=== PATIENT | female | born 1940 | race Caucasian/White ===

== ENCOUNTER 2016-07-20 14:46 | Inpatient (IN) | payer BC, MEDICARE ==
[~2016-07-20] VITALS: Ht 162.6 cm; Wt 81.2 kg
--- NOTE | 2016-07-20 15:14 | NUR ---
AT BEDSIDE PERFORMING MSE
--- NOTE | 2016-07-20 15:16 | NUR ---
PT ARRIV[facility] FROM [facility]. ACCOMPANIED BY EVALUATOR TRANSFER STUDENTS AT BEDSIDE. PT ARRIVED VIA WHEELCHAIR, ABLE TO TRANSFER FROM BED TO CHAIR.
[2016-07-20 15:49] LABS: BASOPHILS # (AUTO) 0.1 K/uL (0.0-8.0); BASOPHILS % (AUTO) 0.6 % (0.0-2.0); EOSINOPHILS # (AUTO) 0.1 K/uL (0.0-0.7); EOSINOPHILS % (AUTO) 0.7 % (0.0-7.0); HEMATOCRIT 42.7 % (37-47); HEMOGLOBIN 14.4 G/DL (12.0-16.0); LYMPHOCYTES # (AUTO) 2.5 K/UL (0.8-4.8); LYMPHOCYTES % (AUTO) 28.6 % (20.5-51.5); MEAN CORPUSCULAR HEMOGLOBIN 30.4 UUG (27.0-31.0); MEAN CORPUSCULAR HGB CONC 34 g/dL (32.0-37.0); MEAN CORPUSCULAR VOLUME 89.7 FL (81.0-99.0); MONOCYTES # (AUTO) 0.6 K/UL (0.1-1.30); MONOCYTES % (AUTO) 7.2 % (0.0-11.0); NEUTROPHILS # (AUTO) 5.3 K/UL (1.8-8.9); NEUTROPHILS % (AUTO) 62.9 % (38.5-71.5); PLATELET COUNT (AUTO) 209 K/UL (150-450); RED BLOOD CELL COUNT(AUTO) 4.76 MIL/UL (4.2-5.4); WHITE BLOOD COUNT (AUTO) 8.6 K/UL (4.0-11.2)
[2016-07-20 15:56] LABS: CARBON DIOXIDE 27 mmol/L (21-32); CHLORIDE 104 mmol/L (98-107); CREATININE 1.4 mg/dL (0.6-1.3); GLUCOSE 98 mg/dL (74-106); POTASSIUM 4.5 mmol/L (3.5-5.1); UREA NITROGEN, BLOOD 20 mg/dL (7-18)
[2016-07-20 16:00] LABS: ALANINE AMINOTRANSFERASE 23 U/L (14-59); ALKALINE PHOSPHATASE 83 U/L (50-136); ASPARTATE AMINOTRANSFERASE 19 U/L (15-37); BILIRUBIN,DIRECT 0.1 mg/dL (0.0-0.2); BILIRUBIN,TOTAL 0.4 mg/dL (0.2-1.0); LIPASE 140 U/L (73-393); TOTAL PROTEIN, SERUM 7.2 g/dL (6.4-8.2)
[2016-07-20] MEDS ORDERED: NITR0.4T SL (16:16)
[2016-07-20] MEDS ORDERED: SPIR25TA4 PO (16:16)
[2016-07-20] MEDS ORDERED: LOPE2CAP40 PO (16:16)
[2016-07-20] MEDS ORDERED: CYCL5TAB PO (16:16)
[2016-07-20] MEDS ORDERED: LEVO75TA7 PO (16:16)
[2016-07-20] MEDS ORDERED: ACET-2605 PO (16:16)
[2016-07-20] MEDS ORDERED: HYDR-3026 PO (16:16)
[2016-07-20] MEDS ORDERED: QUET25TA PO (16:16)
[2016-07-20] MEDS ORDERED: VENL75CA62 PO (16:16)
[2016-07-20] MEDS ORDERED: GLIP5TAB13 PO (16:16)
[2016-07-20] MEDS ORDERED: DIVA500T7 PO (16:16)
[2016-07-20] MEDS ORDERED: QUET50TA PO (16:16)
[2016-07-20] MEDS ORDERED: ATOR10TA PO (16:16)
--- NOTE | 2016-07-20 17:07 | NUR ---
REPORT GIVEN TO JOSE LUIS, AWARE OF PT'S CURRENT CONDITION. WILL CONTINUE PLAN OF CARE
[2016-07-20 17:57] VITALS: BP 100/59
[2016-07-20] MEDS ORDERED: NITROGLYCERIN 0.4 MG/TAB BOTTLE SL PRN (18:30)
[2016-07-20] MEDS ORDERED: Medication Not On Formulary EA (Cyclobenzaprine Hcl 10 MG) PO PRN (18:30)
[2016-07-20] MEDS ORDERED: QUETIAPINE FUMARATE 25 MG TABLET PO PRN (18:30)
[2016-07-20] MEDS ORDERED: DIVALPROEX 500 MG TABLET.DR PO ONE (18:32)
[2016-07-20] MEDS ORDERED: CYCLOBENZAPRINE HCL 10 MG TABLET PO PRN (18:45)
[2016-07-20 19:13] LABS: *BILIRUBIN,URIN NEGATIVE (NEGATIVE); *BLOOD, URINE NEGATIVE (NEGATIVE); *CLARITY,URINE SLIGHTLY CLOUDY (CLEAR); *COLOR,URINE YELLOW (YELLOW); *KETONES,URINE TRACE (NEGATIVE); *PROTEIN,URINE 1+ (NEGATIVE); *UROBILINOGEN,URINE 0.2 E.U./dl (NORMAL); LEUKOCYTE ESTERASE ,URINE TRACE (NEGATIVE); NITRITE, URINE NEGATIVE (NEGATIVE); UGLUCOSE NEGATIVE (NEGATIVE)
[2016-07-20 19:22] LABS: RBC,URINE 0-3 /HPF (0-3)
[2016-07-20 19:23] LABS: BACTERIA,URINE MANY /HPF (NONE SEEN); SQUAMOUS EPITHELIAL CELL,UR MANY /HPF (NONE SEEN)
--- NOTE | 2016-07-20 19:29 | NUR ---
PT IS LAYING IN BED COMFORTABLY. NO PAIN NOTED. NO S/S OF RESPIRATORY DISTRESS NOTED. IV INTACT/PATENT. ALL SAFETY NEEDS ARE MET.
[2016-07-20] MEDS: ATORVASTATIN 10 MG TABLET PO SCH (20:08)
[2016-07-20 20:10] VITALS: BP 111/49
[2016-07-20] MEDS ORDERED: MORPHINE SULFATE 2 MG/1 ML DISP.SYRIN IM PRN (21:00)
[2016-07-20] MEDS: MORPHINE SULFATE 2 MG/1 ML DISP.SYRIN IV PRN (22:08)
[2016-07-20] MEDS ORDERED: MORPHINE SULFATE 2 MG/1 ML DISP.SYRIN ONE (22:12)
--- NOTE | 2016-07-21 04:57 | NUR ---
C/O LOWER BACK PAIN LAST NIGHT, WAS GIVEN MS PRESCRIBED. NO FURTHER C/O PAIN. PT NOW RESTING IN BED, WATCHING TV. TURNED AND REPOSITIONED. SAFETY MAINTAINED. CALL LIGHT WITHIN REACH.
[2016-07-21] MEDS: LEVOTHYROXINE SODIUM 75 MCG TABLET PO SCH (06:30)
[2016-07-21] MEDS: MORPHINE SULFATE 2 MG/1 ML DISP.SYRIN IV PRN ×3 (06:30→20:59)
[2016-07-21] MEDS: glipiZIDE 5 MG TABLET PO SCH (06:30)
[2016-07-21] MEDS ORDERED: MORPHINE SULFATE 2 MG/1 ML DISP.SYRIN ONE (06:40)
[2016-07-21 06:47] VITALS: BP 116/58
--- NOTE | 2016-07-21 07:30 | NUR ---
RECEIVED PATIENT IN BED AWAKE ALERT AND STATED COMFORTABLE AT THIS TIME REMAINS ON ROOM AIR WITH NO SHORTNESS OF BREATH. MADE COMFORTABLE NO DISTRESS AT THIS TIME.
--- NOTE | 2016-07-21 08:00 | NUR ---
PATIENT STATED THAT SHE WAS MISSING SOME OF HER MEDICATIONS BUT DOES NO REMEMBER THE NAMES SO SHE STATED THAT SHE WILL CALL HER FAMILY FOR THE NAMES AND WILL LET ME KNOW.DR LOMAS AWARE OF THIS CONVERSATION.
--- NOTE | 2016-07-21 08:32 | NUR ---
NOTED THAT PATIENT HAS NO DIET ORDER CALLED AND SPOKE WITH DR LOMAS WITH NEW ORDERS AND NOTED.
[2016-07-21] MEDS: QUETIAPINE FUMARATE 25 MG TABLET PO SCH ×2 (08:46→17:44)
[2016-07-21] MEDS: DIVALPROEX 500 MG TABLET.DR PO SCH ×2 (08:46→17:43)
[2016-07-21] MEDS: VENLAFAXINE XR 75 MG CAP.SR.24H PO SCH ×2 (08:46→17:43)
[2016-07-21] MEDS ORDERED: Medication Not On Formulary EA (Quetiapine Fumarate (Seroquel) 50 MG) PO SCH (09:00)
--- NOTE | 2016-07-21 09:38 | NUR ---
ORDER NOTED FROM DR LOMAS FOR ECHO AND NOTED
[2016-07-21 11:22] LABS: CARBON DIOXIDE 30 mmol/L (21-32); CHLORIDE 104 mmol/L (98-107); CREATININE 1.1 mg/dL (0.6-1.3); GLUCOSE 70 mg/dL (74-106); POTASSIUM 4.1 mmol/L (3.5-5.1); UREA NITROGEN, BLOOD 19 mg/dL (7-18)
[2016-07-21 12:04] VITALS: BP 100/50
--- NOTE | 2016-07-21 12:25 | NUR ---
TEXTED DR. ADAN FOR MRI APPROVAL.
--- NOTE | 2016-07-21 13:10 | NUR ---
CALL RECEIVED FROM ROCCO AT THE MRI STATED THAT THE MRI FOR C SPINE L SPINE AND T SPINE HAS BEEN APPROAVED AND THE APPOINTMENT IS SET FOR 0.CALLED [facility] AND SPOKE WITH TYLER WILL DRYING OVEN ATTENDANT SOON POSSIBLE.PATIENT AWARE AND FILLED OUT THE MRI QUESTIONAIRE.
--- NOTE | 2016-07-21 16:15 | NUR ---
PATIENT PICKED UP BY [facility] TO [facility] FOR MRI ORDERED IN SATISFACTORY CONDITION.PATIENT WAS MEDICATED WITH MORPHINE PER HER REQUEST PRIOR TO HIDE BUYER.
[2016-07-21 16:24] VITALS: BP 108/59
--- NOTE | 2016-07-21 17:30 | NUR ---
PATIENT RETURNED FROM [facility] AND PER THE DEANA TRUONG SHE DID NOT EVEN FINISH THE C PINE BECAUSE THE PATIENT IS NOT COOPERATING DID NOT LIKE THE CLOSED MRI STATED THAT SHE ALWAYS USED TO THE OPEN MRI.
[2016-07-21 19:00] VITALS: BP 100/64
[2016-07-21] MEDS: ATORVASTATIN 10 MG TABLET PO SCH (20:57)
[2016-07-22] MEDS: MORPHINE SULFATE 2 MG/1 ML DISP.SYRIN IV PRN ×2 (03:27→20:21)
--- NOTE | 2016-07-22 03:30 | NUR ---
NO PAIN MEDICATION WAS GIVEN FOR REASSESSMENT TIME.
[2016-07-22 05:10] VITALS: BP 124/65
[2016-07-22] MEDS: hydrOXYzine HCL 25 MG TABLET PO PRN ×2 (06:49→20:22)
[2016-07-22] MEDS: LEVOTHYROXINE SODIUM 75 MCG TABLET PO SCH (06:49)
[2016-07-22] MEDS: glipiZIDE 5 MG TABLET PO SCH (06:50)
[2016-07-22 06:59] LABS: CARBON DIOXIDE 30 mmol/L (21-32); CHLORIDE 105 mmol/L (98-107); CHOLESTEROL 232 mg/dL (<200); CREATININE 1.2 mg/dL (0.6-1.3); GLUCOSE 87 mg/dL (74-106); HDL CHOLESTEROL 56 mg/dL (40-60); MAGNESIUM 1.8 mg/dL (1.8-2.4); PHOSPHOROUS 4.1 mg/dL (2.5-4.9); POTASSIUM 4.1 mmol/L (3.5-5.1); TRIGLYCERIDES 96 MG/DL (30-150); UREA NITROGEN, BLOOD 23 mg/dL (7-18)
[2016-07-22 07:08] LABS: BASOPHILS % (AUTO) 0.5 % (0.0-2.0); EOSINOPHILS # (AUTO) 0.1 K/uL (0.0-0.7); HEMATOCRIT 38.7 % (37-47); HEMOGLOBIN 12.9 G/DL (12.0-16.0); LYMPHOCYTES # (AUTO) 2.1 K/UL (0.8-4.8); LYMPHOCYTES % (AUTO) 38.4 % (20.5-51.5); MEAN CORPUSCULAR HEMOGLOBIN 29.6 UUG (27.0-31.0); MEAN CORPUSCULAR HGB CONC 33 g/dL (32.0-37.0); MEAN CORPUSCULAR VOLUME 88.8 FL (81.0-99.0); MONOCYTES # (AUTO) 0.4 K/UL (0.1-1.30); NEUTROPHILS # (AUTO) 2.9 K/UL (1.8-8.9); NEUTROPHILS % (AUTO) 51.1 % (38.5-71.5); PLATELET COUNT (AUTO) 163 K/UL (150-450); RED BLOOD CELL COUNT(AUTO) 4.36 MIL/UL (4.2-5.4)
[2016-07-22 07:12] LABS: THYROID STIMULATING HORMONE 1.629 mIU/mL (0.358-3.740); WHITE BLOOD COUNT (AUTO) 5.5 K/UL (4.0-11.2)
--- NOTE | 2016-07-22 08:00 | NUR ---
RECEIVED PATIENT AWAKE ALERT AND ORIENTED DENIES PAIN OR DISCOMFORTS AT THIS TIME.APPETITE WAS GOOD FOR MEALS FLUIDS TOLERATED WELL MADE COMFORTABLE NOT IN DISTRESS AT THIS TIME.
[2016-07-22] MEDS: DIVALPROEX 500 MG TABLET.DR PO SCH ×2 (08:15→17:15)
[2016-07-22] MEDS: QUETIAPINE FUMARATE 25 MG TABLET PO SCH ×2 (08:15→17:15)
[2016-07-22] MEDS: VENLAFAXINE XR 75 MG CAP.SR.24H PO SCH ×2 (08:15→17:15)
[2016-07-22 11:58] VITALS: BP 107/56
--- NOTE | 2016-07-22 13:34 | NUR ---
AWAKE ALERT ANXIOUS TO SEE THE DOCTOR AND MAY BE GO HOME TODAY MESSAGE LEFT FOR DR LOMAS.
[2016-07-22 16:12] VITALS: BP 103/59
--- NOTE | 2016-07-22 18:00 | NUR ---
PATIENT SEEN BY DR LOMAS WITH DISCHARGE PLANNING TO THE SNF TOMORROW PATIENT IS AWARE.
[2016-07-22 19:00] VITALS: BP 106/52
--- NOTE | 2016-07-22 19:30 | NUR ---
RECEIVED PT IN BED, IN NO ACUTE SIGNS OF DISTRESS. DENIES PAIN AT THIS TIME. SAFETY OBSERVED. CALL LIGHT WITHIN REACH.
[2016-07-22] MEDS: ATORVASTATIN 10 MG TABLET PO SCH (20:20)
[2016-07-23] MEDS: hydrOXYzine HCL 25 MG TABLET PO PRN (01:26)
--- NOTE | 2016-07-23 01:26 | NUR ---
PT COMPLAINING OF ALLERGIC REACTION TO MORPHINE, STATING THAT SHE IS ITCHING ON THE IV SITE, WHEN SITE WAS CHECKED THERE WAS NO RASHES/ REDNESS, ALSO NO RASHES NOTED ON OTHER SITE SITE OF THE BODY. NO C/O SOB. ATARAX WAS GIVEN PER PT REQUEST AND PRESCRIBED. WILL CONTINUE TO MONITOR.
[2016-07-23 04:39] VITALS: BP 126/61
[2016-07-23] MEDS: LEVOTHYROXINE SODIUM 75 MCG TABLET PO SCH (06:05)
--- NOTE | 2016-07-23 06:31 | NUR ---
NO FURTHER C/O PAIN/ ITCHING AT THIS TIME. PAIN IN BED RESTING, SLEPT INTERMITTENTLY LAST NIGHT. IN NO ACUTE SIGNS OF DISTRESS, TURNED AND REPOSITIONED. SAFETY MAINTAINED. CALL LIGHT WITHIN REACH.
[2016-07-23] MEDS: glipiZIDE 5 MG TABLET PO SCH (06:44)
[2016-07-23] MEDS ORDERED: FLEET ENEMA 133 ML BOTTLE RC PRN (08:00)
[2016-07-23] MEDS ORDERED: MIRALAX 17 GM POWD.PACK PO PRN (08:00)
[2016-07-23] MEDS ORDERED: BISACODYL 10 MG SUPP.RECT RC ONE (08:00)
--- NOTE | 2016-07-23 08:00 | NUR ---
NEW ORDERS NOTED FROM DR LOMAS TO GIVE PATIENT A DULCOLAX SUPPOSITORY AND START HIM ON BACTRIM BUT PATIENT REFUSED THE BACTRIM STATED THAT HE ISHE IS ALLERGIC TO BACTRIM AND THAT DULCOLAX SUPPOSITORY CAUSES HER TO HAVE DIARRHEA BUT SHE ACCEPTED THE PRN MIRALAX AND DSS STOOL SOFTENER ORDERED DR LOMAS WAS NOTIFIED THAT PATIENT REFUSED THE LAXATIVE AND THE ANTIBIOTICS WITH NO NEW ORDERS AT THIS TIME.
[2016-07-23] MEDS: DIVALPROEX 500 MG TABLET.DR PO SCH ×2 (08:36→17:14)
[2016-07-23] MEDS: VENLAFAXINE XR 75 MG CAP.SR.24H PO SCH ×2 (08:37→17:13)
[2016-07-23] MEDS: DOCUSATE SODIUM 100 MG CAPSULE PO SCH ×2 (08:37→20:06)
[2016-07-23 08:38] LABS: CARBON DIOXIDE 32 mmol/L (21-32); CHLORIDE 104 mmol/L (98-107); CREATININE 1.2 mg/dL (0.6-1.3); GLUCOSE 52 mg/dL (74-106); MAGNESIUM 1.9 mg/dL (1.8-2.4); POTASSIUM 4.2 mmol/L (3.5-5.1); UREA NITROGEN, BLOOD 22 mg/dL (7-18)
[2016-07-23] MEDS: QUETIAPINE FUMARATE 25 MG TABLET PO SCH ×2 (08:38→17:14)
[2016-07-23] MEDS: SULFAMETH/TRIMETH 800/160 MG TABLET PO SCH ×2 (08:44→20:06)
[2016-07-23] MEDS ORDERED: MULTIVITAMINS,THERAPEUTIC TABLET PO SCH (09:00)
[2016-07-23 11:52] VITALS: BP 109/52
--- NOTE | 2016-07-23 12:39 | NUR ---
DISCHARGE PLANNING TODAY BUT THE MARKET RESEARCH ANALYST STATED THAT SHE IS STILL WAITING FOR AUTHORIZATION FROM THE PATIENTS INSURANCE BEFORE SHE CAN BE TRANSFERED TO THE [facility] TODAY.PATIENT IS AWARE AND EXPRESSED UNDERSTANDING.
[2016-07-23 16:10] VITALS: BP 122/63
--- NOTE | 2016-07-23 16:45 | NUR ---
The patient will be discharged today to [facility] [ ; ; [address] [place] [address]] via [facility]. Spoke to SANCHEZ Salazar from [facility] [ ; ] and updated her on the patient's condition. She authorized her SNF placement for PT and OT. Alissa from [facility] confirmed that they will admit the patient today and will be going to Room#206B. The patient is aware and in agreement with her discharge plan. Also spoke to Terri, Reimbursement Counselor of [facility] [ ; [address] [place] [address]] and provided her with [facility]'s phone number and address. Her RN, Anabell, is aware of her discharge plan and will call the facility for the report. Addendum: 07/23/16 at 1659 by RICHIE SERRANO CMG Her admitting MD is Dr. De León
[2016-07-23] MEDS ORDERED: TEMA15CA PO (18:05)
[2016-07-23] MEDS ORDERED: Sodium Phosphate Fleet RC (18:05)
[2016-07-23] MEDS ORDERED: POLY17PO4 PO (18:05)
[2016-07-23] MEDS ORDERED: HYDR-548 PO (18:05)
[2016-07-23] MEDS ORDERED: DOCU-170 PO (18:05)
[2016-07-23] MEDS ORDERED: MULT-24 PO (18:05)
[2016-07-23] MEDS ORDERED: ATOR10TA PO (18:05)
--- NOTE | 2016-07-23 18:21 | NUR ---
NEW ORDERS NOTED TO DISCHARGE PATIENT TO [facility] TODAY AND NOTED PATIENT IS AWARE AND WILL PREPARE PAPERS FOR DISCHARGE TRISTAN
--- NOTE | 2016-07-23 19:40 | NUR ---
RECEIVED PATIENT AWAKE IN BED. PATIENT IS A/O X4. WAITING FOR TRANSPORT TO [facility]. C/O PAIN IN LOWER BACK. REQUESTING FOR PAIN MEDICATION. NO RESP. DISTRESS NOTED. VSS. CALL LIGHT IN REACH. ALL NEEDS ATTENDED. WILL CONTINUE TO MONITOR.
--- NOTE | 2016-07-23 19:45 | NUR ---
PATIENT GIVEN MORPHINE 2MG IV PER RN, FOR LOWER BACK PAIN. VSS. AMBULANCE AT BEDSIDE TO [facility] C[facility] ASSOCIATE PATIENT. INFORMED TRANSPORT THAT PATIENT HAS TO WAIT 30 MINUTES SINCE PAIN MEDICATION WAS JUST GIVEN. CALLED AND REPORT GIVEN TO STUART RN AT [facility]. ALL NEEDS ATTENDED. WILL CONTINUE TO MONITOR.
[2016-07-23] MEDS: MORPHINE SULFATE 2 MG/1 ML DISP.SYRIN IV PRN (19:46)
[2016-07-23] MEDS: ATORVASTATIN 10 MG TABLET PO SCH (20:06)
--- NOTE | 2016-07-23 20:20 | NUR ---
PATIENT DENIES PAIN AT THIS TIME. MORPHINE EFFECTIVE. VSS. TRANSPORT AT BEDSIDE TO TRANSFER PATIENT. [place]PLOCK REMOVED. ALL NEEDS ATTENDED.
--- NOTE | 2016-07-23 20:25 | NUR ---
PATIENT LEFT FACILITY IN STABLE CONDITION.
[2016-07-24] MEDS ORDERED: BISACODYL 10 MG SUPP.RECT RC PRN (08:00)
== END 2016-07-23 20:25 | DRG 388 ==
LOC: ER 14:49 → MED 16:58
PROVIDERS: ADMIT Internal Medicine; ATTEND Internal Medicine
DX: K56.41 Fecal impaction (principal); N17.0 Acute kidney failure with tubular necrosis; D68.59 Other primary thrombophilia; I13.0 Hypertensive heart and chronic kidney disease with heart failure and stage 1 through stage 4 chronic kidney disease, or unspecified chronic kidney disease; N39.0 Urinary tract infection, site not specified; J94.8 Other specified pleural conditions; E11.22 Type 2 diabetes mellitus with diabetic chronic kidney disease; G40.909 Epilepsy, unspecified, not intractable, without status epilepticus; I25.10 Atherosclerotic heart disease of native coronary artery without angina pectoris; K57.30 Diverticulosis of large intestine without perforation or abscess without bleeding; E66.3 Overweight; E78.5 Hyperlipidemia, unspecified; G89.29 Other chronic pain; M19.90 Unspecified osteoarthritis, unspecified site; M81.0 Age-related osteoporosis without current pathological fracture; Z85.038 Personal history of other malignant neoplasm of large intestine; Z79.899 Other long term (current) drug therapy; Z79.84 Long term (current) use of oral hypoglycemic drugs; Z74.01 Bed confinement status; N80.9 Endometriosis, unspecified; Z85.41 Personal history of malignant neoplasm of cervix uteri; Z90.49 Acquired absence of other specified parts of digestive tract; Z88.5 Allergy status to narcotic agent; Z87.891 Personal history of nicotine dependence; Z86.73 Personal history of transient ischemic attack (TIA), and cerebral infarction without residual deficits; Z88.3 Allergy status to other anti-infective agents; Z88.0 Allergy status to penicillin; N18.9 Chronic kidney disease, unspecified; Z98.890 Other specified postprocedural states; Z74.09 Other reduced mobility; M54.10 Radiculopathy, site unspecified; K66.0 Peritoneal adhesions (postprocedural) (postinfection)
CPT/HCPCS: 36415; 70030-TC; 71010; 80164; 82306; 82378; 83605; 83690; 83735; 84100; 84443; 85025; 85730; 86140; 87040; 87086; 93005; 93307; 97116; 97161; 97530; A4663; J2270